=== PATIENT | female | born 1975 | race Two or more races ===

== ENCOUNTER 2018-08-02 11:23 | Emergency (ER) | payer MEDICAID ==
[~2018-08-02] VITALS: Ht 162.6 cm; Wt 80.3 kg
[2018-08-02 11:26] VITALS: BP 136/94
[2018-08-02 12:43] LABS: APPEARANCE,URINE Cloudy (CLEAR); BILIRUBIN,URINE Negative (NEGATIVE); BLOOD, URINE Trace-lysed Ery/uL (NEGATIVE); KETONES,URINE Negative (NEGATIVE); LEUKOCYTE ESTERASE ,URINE Trace (NEGATIVE); NITRITE, URINE Positive (NEGATIVE); PROTEIN,URINE Negative (NEGATIVE); UGLUCOSE 100 MG/DL mg/dL (NEGATIVE)
[2018-08-02 12:52] LABS: COLOR,URINE Dark Yellow (YELLOW)
[2018-08-02 12:53] LABS: BACTERIA,URINE Few /HPF (None Seen); SQUAMOUS EPITHELIAL CELL,UR Moderate /HPF (None Seen)
[2018-08-02] MEDS ORDERED: CEPHALEXIN MONOHYDRATE 500 MG CAPSULE PO ONE ×2 (13:00→13:11)
[2018-08-02] MEDS ORDERED: IBUPROFEN 600 MG TABLET PO ONE ×2 (13:16→13:30)
== END 2018-08-02 13:22 | disposition home or self-care (01) ==
LOC: ER 11:23
DX: S60.131A Contusion of right middle finger with damage to nail, initial encounter (principal); N39.0 Urinary tract infection, site not specified; W23.0XXA Caught, crushed, jammed, or pinched between moving objects, initial encounter; Y93.89 Activity, other specified; Y92.89 Other specified places as the place of occurrence of the external cause; Y99.8 Other external cause status
CPT/HCPCS: 73140-TC; 81000-TC

== ENCOUNTER 2019-04-29 13:10 | Emergency (ER) | payer MEDICAID, OTHER ==
[~2019-04-29] VITALS: Ht 162.6 cm; Wt 79.4 kg
--- NOTE | 2019-04-29 13:30 | NUR ---
"Abdominal/epigastric pain started sunday NOT better.Also have Chronic UTI" Patient a/ox4, breathing even and unlabored, no sob noted, needs attended, kept comfortable, will continue to monitor.
--- NOTE | 2019-04-29 13:35 | NUR ---
DEGRASSE SALES PLANNING ANALYST AT BEDSIDE FOR EVAL.
[2019-04-29] MEDS ORDERED: MORPHINE SULFATE INJ 4 MG/ML DISP.SYRIN ONE (13:38)
[2019-04-29] MEDS ORDERED: ONDANSETRON HCL/PF 4 MG/2 ML VIAL ONE (13:38)
[2019-04-29] MEDS ORDERED: IV NS 0.9% 1,000 ML BAG IV ONE (14:00)
[2019-04-29] MEDS ORDERED: ONDANSETRON HCL/PF 4 MG/2 ML VIAL IVP ONE (14:00)
[2019-04-29] MEDS ORDERED: MORPHINE SULFATE INJ 2 MG/ML DISP.SYRIN IV ONE (14:00)
[2019-04-29 14:06] LABS: BASOPHILS # (AUTO) 0.1 /CMM (0.0-0.2); HEMATOCRIT 41 % (33-45); HEMOGLOBIN 13.6 g/dL (11.5-14.8); LYMPHOCYTES # (AUTO) 2.5 /CMM (0.8-4.8); LYMPHOCYTES % (AUTO) 21.8 % (20.0-44.0); MEAN CORPUSCULAR HGB CONC 33 g/dl (31.0-36.0); MEAN CORPUSCULAR VOLUME 82 fL (82-100); MONOCYTES # (AUTO) 0.5 /CMM (0.1-1.30); NEUTROPHILS # (AUTO) 7.5 /CMM (1.8-8.9); NEUTROPHILS % (AUTO) 67.2 % (43.0-81.0); PLATELET COUNT (AUTO) 264 /CMM (150-450); RED BLOOD CELL COUNT(AUTO) 4.97 MIL/uL (4.0-5.2); WHITE BLOOD COUNT (AUTO) 11.2 K/uL (4.3-11.0)
[2019-04-29 14:13] LABS: CREATININE 0.7 mg/dL (0.6-1.3); POTASSIUM 3.9 mmol/L (3.5-5.1)
--- NOTE | 2019-04-29 14:15 | NUR ---
us tech at bedside.
[2019-04-29 14:19] LABS: ALBUMIN 3.8 g/dL (3.4-5.0); BILIRUBIN,DIRECT 0.1 mg/dL (0.0-0.2); BILIRUBIN,TOTAL 0.4 mg/dL (0.2-1.0)
[2019-04-29 14:20] LABS: APPEARANCE,URINE Clear (CLEAR); BILIRUBIN,URINE Negative (NEGATIVE); BLOOD, URINE Trace-intact Ery/uL (NEGATIVE); COLOR,URINE Yellow (YELLOW); KETONES,URINE Negative (NEGATIVE); LEUKOCYTE ESTERASE ,URINE Negative (NEGATIVE); NITRITE, URINE Negative (NEGATIVE); PH,URINE 7.5 (5.0-8.0); PROTEIN,URINE Negative (NEGATIVE); UGLUCOSE Negative (NEGATIVE); UROBILINOGEN,URINE 0.2 EU/dL (0.2)
[2019-04-29 14:22] LABS: BACTERIA,URINE Few /HPF (None Seen); RBC,URINE 0-2 /HPF (0-2); SQUAMOUS EPITHELIAL CELL,UR Few /HPF (None Seen); WBC,URINE 0-2 /HPF (0-3)
--- NOTE | 2019-04-29 16:28 | NUR ---
FLUID CHALLENGE DONE, PATIENT ABLE TO TOLERATE LIQUIDS AT THIS TIME. DEGRASSE MEAT WRAPPER AT BEDSIDE.
--- NOTE | 2019-04-29 16:40 | NUR ---
IV removed. Catheter intact and site benign. Pressure and 4x4 applied to site. No bleeding noted.Patient discharged to home in stable condition. Written and verbal after care instructions given. Patient verbalizes understanding of instruction.
[2019-04-29 16:41] VITALS: BP 109/71
== END 2019-04-29 16:41 | disposition home or self-care (01) ==
LOC: ER 13:10
DX: K29.70 Gastritis, unspecified, without bleeding (principal)
CPT/HCPCS: 36415; 76705; 80048; 80076; 81001; 83690; 84703; 85025; 96361; 96374; 96375; 99284; J2270; J2405; J7030; 81000-TC

== ENCOUNTER 2019-11-09 23:28 | Emergency (ER) | payer MEDICAID, OTHER ==
[~2019-11-09] VITALS: Ht 167.6 cm; Wt 74.8 kg
[2019-11-09 23:37] VITALS: BP 123/67
--- NOTE | 2019-11-09 23:44 | NUR ---
URINE COLLECTED AND SENT TO LAB
--- NOTE | 2019-11-09 23:45 | NUR ---
PATIENT CAME TO ER BED 1 C/O URINARY PAIN SINCE A FEW DAYS AGO THAT COMES AND GOES. PATIENT STATES THAT SHE HAS BEEN DRINKING CRANBERRY JUICE, INSERTING SUPPOSITORY ANTI-YEAST FOAM [id number] FROM [facility], AND DOUCHING HERSELF. BURNING SENSATION WHEN SHE URINATES. PATIENT IS AAOX4. NO SOB. BREATHING EVENLY AND UNLABORED ON ROOM AIR.
[2019-11-10 00:01] LABS: APPEARANCE,URINE Clear (CLEAR); BILIRUBIN,URINE Negative (NEGATIVE); BLOOD, URINE Trace-lysed Ery/uL (NEGATIVE); COLOR,URINE Yellow (YELLOW); KETONES,URINE Negative (NEGATIVE); LEUKOCYTE ESTERASE ,URINE Negative (NEGATIVE); NITRITE, URINE Negative (NEGATIVE); PROTEIN,URINE Negative (NEGATIVE); UGLUCOSE Negative (NEGATIVE)
[2019-11-10 00:20] LABS: BACTERIA,URINE None seen /HPF (None Seen); RBC,URINE 0-2 /HPF (0-2); SQUAMOUS EPITHELIAL CELL,UR Few /HPF (None Seen); WBC,URINE 0-2 /HPF (0-3)
[2019-11-10] MEDS ORDERED: FLUCONAZOLE (100 MG) 100 MG TABLET ONE (00:49)
--- NOTE | 2019-11-10 00:55 | NUR ---
Patient discharged to home in stable condition. Written and verbal after care instructions given. Patient verbalizes understanding of instruction.pt. ambulatory with a steady gait
--- NOTE | 2019-11-10 00:57 | NUR ---
Prescriptions provided and given to the patient.
[2019-11-10] MEDS ORDERED: FLUCONAZOLE (100 MG) 100 MG TABLET PO ONE (01:00)
== END 2019-11-10 01:01 | disposition home or self-care (01) ==
LOC: ER 23:28
DX: N76.0 Acute vaginitis (principal); J45.909 Unspecified asthma, uncomplicated
CPT/HCPCS: 81000-TC; 84703-TC

== ENCOUNTER 2019-12-05 00:34 | Emergency (ER) | payer MEDICAID ==
[~2019-12-05] VITALS: Ht 167.6 cm; Wt 74.8 kg
--- NOTE | 2019-12-05 00:51 | NUR ---
bibs c/o pain burning and frequency upon urination x1 day to er bed 1
[2019-12-05 01:05] LABS: APPEARANCE,URINE TURBID (CLEAR); BILIRUBIN,URINE NEGATIVE (NEGATIVE); BLOOD, URINE SMALL Ery/uL (NEGATIVE); COLOR,URINE YELLOW (YELLOW); KETONES,URINE NEGATIVE (NEGATIVE); LEUKOCYTE ESTERASE ,URINE NEGATIVE (NEGATIVE); NITRITE, URINE NEGATIVE (NEGATIVE); PROTEIN,URINE NEGATIVE (NEGATIVE); UGLUCOSE NEGATIVE (NEGATIVE); UROBILINOGEN,URINE 0.2 EU/dL (0.2)
[2019-12-05] MEDS ORDERED: FLUCONAZOLE (100 MG) 100 MG TABLET ONE (01:21)
[2019-12-05 01:27] LABS: BACTERIA,URINE Moderate /HPF (None Seen); RBC,URINE 0-2 /HPF (0-2); SQUAMOUS EPITHELIAL CELL,UR Moderate /HPF (None Seen); WBC,URINE 21-50 /HPF (0-3)
[2019-12-05] MEDS: FLUCONAZOLE (100 MG) 100 MG TABLET PO ONE (01:27)
--- NOTE | 2019-12-05 01:31 | NUR ---
Patient discharged to home in stable condition. Written and verbal after care instructions given. Patient verbalizes understanding of instruction.
[2019-12-05 01:32] VITALS: BP 131/64
== END 2019-12-05 01:32 | disposition home or self-care (01) ==
LOC: ER 00:34
DX: N76.0 Acute vaginitis (principal); J45.909 Unspecified asthma, uncomplicated
CPT/HCPCS: 81000-TC; 87086-TC; 87186-TC

== ENCOUNTER 2019-12-24 20:37 | Emergency (ER) | payer MEDICAID, OTHER ==
[~2019-12-24] VITALS: Ht 162.6 cm; Wt 72.6 kg
[2019-12-24 20:37] VITALS: BP 118/79
--- NOTE | 2019-12-24 21:04 | NUR ---
URINE SENT TO LAB
[2019-12-24 21:12] LABS: APPEARANCE,URINE Clear (CLEAR); BILIRUBIN,URINE Negative (NEGATIVE); BLOOD, URINE Moderate Ery/uL (NEGATIVE); COLOR,URINE Yellow (YELLOW); KETONES,URINE Negative (NEGATIVE); LEUKOCYTE ESTERASE ,URINE Moderate (NEGATIVE); NITRITE, URINE Positive (NEGATIVE); PROTEIN,URINE Negative (NEGATIVE); UGLUCOSE Negative (NEGATIVE); UROBILINOGEN,URINE 0.2 EU/dL (0.2)
[2019-12-24 21:50] LABS: BACTERIA,URINE Few /HPF (None Seen); SQUAMOUS EPITHELIAL CELL,UR Moderate /HPF (None Seen); URINE AMORPHOUS URATE Few /HPF (None Seen); WBC,URINE 51-80 /HPF (0-3)
[2019-12-24] MEDS ORDERED: NITROFURANTOIN/NITROFURAN MAC 100 MG CAPSULE ONE (21:58)
[2019-12-24] MEDS: NITROFURANTOIN/NITROFURAN MAC 100 MG CAPSULE PO ONE (22:02)
--- NOTE | 2019-12-24 22:21 | NUR ---
Patient discharged to home in stable condition. Written and verbal after care instructions given. Patient verbalizes understanding of instruction.
== END 2019-12-24 22:21 | disposition home or self-care (01) ==
LOC: ER 20:37
DX: N30.00 Acute cystitis without hematuria (principal); J45.909 Unspecified asthma, uncomplicated
CPT/HCPCS: 81000-TC; 84703-TC; 87086-TC; 87186-TC

== ENCOUNTER 2023-12-18 09:24 | Emergency (ER) | payer MEDICAID, OTHER ==
[~2023-12-18] VITALS: Ht 162.6 cm; Wt 81.6 kg
[2023-12-18 09:38] VITALS: BP 122/92; TEMP 98.5; O2SAT 98
[2023-12-18 10:40] LABS: APPEARANCE,URINE CLEAR (CLEAR); BILIRUBIN,URINE NEGATIVE (NEGATIVE); BLOOD, URINE TRACE-INTA Ery/uL (NEGATIVE); COLOR,URINE YELLOW (YELLOW); KETONES,URINE NEGATIVE (NEGATIVE); LEUKOCYTE ESTERASE ,URINE TRACE (NEGATIVE); NITRITE, URINE NEGATIVE (NEGATIVE); PH,URINE 7.5 (5.0-8.0); PROTEIN,URINE NEGATIVE (NEGATIVE); UGLUCOSE NEGATIVE (NEGATIVE); UROBILINOGEN,URINE 0.2 EU/dL (0.2)
[2023-12-18 10:41] LABS: PREGNANCY TEST URINE QUAL NEGATIVE (NEGATIVE)
[2023-12-18 10:42] LABS: ADD URINE CULTURE NO; BACTERIA,URINE Few /HPF (None Seen); SQUAMOUS EPITHELIAL CELL,UR Rare /HPF (None Seen); WBC,URINE 0-2 /HPF (0-3)
[2023-12-18] MEDS ORDERED: CEPH-570 PO (10:51)
== END 2023-12-18 11:02 | disposition home or self-care (01) ==
LOC: ER 09:24
DX: N30.00 Acute cystitis without hematuria (principal); R10.2 Pelvic and perineal pain; J45.909 Unspecified asthma, uncomplicated; R30.0 Dysuria; R39.15 Urgency of urination
CPT/HCPCS: 81001; 84703-TC